=== PATIENT | male | born 1965 | race Caucasian/White ===

== ENCOUNTER 2024-04-13 11:21 | Outpatient (CLI) | payer OTHER, SELFPAY ==
--- NOTE | 2024-04-13 11:30 | XR_ITS ---
WS: [id number] ANKLE RIGHT TECHNIQUE: 2 views of the right ankle CLINICAL INFORMATION: RIGHT ANKLE PAIN COMPARISON: None. FINDINGS: Osteopenia. Postoperative changes plate and screw fixation mid to distal fibula. No evidence of hardw are loosening. Advanced degenerative narrowing at the tibiotalar joint with flattening of the talus. Flattening and sclerosis involving the talar dome likely due to avascular necrosis. XR/XR ankle RT 2V [id number] IMPRESSION: 1. Osteopenia. 2. Plate and screw fixation mid to distal fibula with chronic fracture deformi ty with posterior bowing. Associated hyperostosis. 3. Advanced degenerative narrowing of the tibiotalar joint with flattening and sclerosis of the talus likely due to avascular necrosis. This could be further evaluated with CT if indicated.
== END 2024-04-13 11:22 | disposition home or self-care (01) ==
LOC: RAD 11:27
DX: Z02.71 Encounter for disability determination (principal); M85.871 Other specified disorders of bone density and structure, right ankle and foot; Z98.890 Other specified postprocedural states; R93.6 Abnormal findings on diagnostic imaging of limbs
CPT/HCPCS: 73600

== ENCOUNTER → 2024-10-01 15:01 | Outpatient (BNVA) | payer OTHER, SELFPAY | PROVIDERS: Visit Provider Family Medicine | DX: M25.50 Pain in unspecified joint (principal); I10 Essential (primary) hypertension; Z12.5 Encounter for screening for malignant neoplasm of prostate | CPT/HCPCS: 80053; 80061; 85025; 85651; 86038; 86140; 86431; G0103 ==

== ENCOUNTER → 2024-12-24 11:13 | Outpatient (BNVA) | payer MEDICAID, SELFPAY | PROVIDERS: PCP Family Medicine; Visit Provider Family Medicine | DX: R31.9 Hematuria, unspecified (principal) | CPT/HCPCS: 80053; 81000 ==

== ENCOUNTER → 2025-03-25 13:00 | Outpatient (BNVA) | payer MEDICAID, SELFPAY | PROVIDERS: PCP Family Medicine; Visit Provider Family Medicine | DX: E55.9 Vitamin D deficiency, unspecified (principal); E78.2 Mixed hyperlipidemia; I10 Essential (primary) hypertension | CPT/HCPCS: 80053; 80061; 82306 ==

== ENCOUNTER 2025-04-08 11:32 | Outpatient (CLI) | payer MEDICAID, SELFPAY ==
--- NOTE | 2025-04-08 | ECG_ITS ---
[facility] Test Date: 2025-04-08 Pat Name: Francisco Kolb Department: Room: Gender: Male [employer]: : 1965 Requested By: Alfa Tobar Order Number: [id number] Jillian MD: ELPIDIO NEFF Interpretive Statements Lung unchanged pre/post procedure; Intraprocedure shortess of breath; Symptoms resoled by discharge EXERCISE DATA: The patient was exercised by Francisco protocol. Baseline heart rate was 71 beats per minute. Baseline blood pressure was 125/92 millimeters of mercury. Target heart rate was 159 beats per minute. Maximum heart rate achieved was 166, which was 104 % of the target heart rate. Maximum blood pressure was 216/92 millimeters of mercury. Total exercise time was 9 minutes 25 seconds. Maximum METs achieved was 13.5, maximum VO2 was 47.3. The reason for ending the test was maximum effort achieved. The patient complained of shortness of breath during the stress test, which then resolved at the end of the test. ELECTROCARDIOGRAM: BASELINE: Showed sinus rhythm, normal axis, no significant ST-T changes at the baseline noted. EXERCISE: At the peak exercise level, no significant ST-T changes suggestive of ischemia noted. RECOVERY: During the recovery period, heart rate dropped appropriately. No significant ST-T changes in the recovery suggestive of ischemia noted. CONCLUSION: 1. Exercise capacity good 2. Heart rate response was appropriate. 3. Blood pressure response was hypertensive. 4. Symptoms not suggestive of ischemia. 5. Electrocardiogram portion of the stress test was not suggestive of ischemia. Electronically Signed On 04-11-2025 15:57:05 PSYCHOLOG[employer] TE[employer] by ELPIDIO NEFF [email or web address]
[2025-04-08 12:00] VITALS: BMI 23.0
[2025-04-08 12:35] VITALS: BP 156/83; PULSE 101
== END 2025-04-08 11:33 | disposition home or self-care (01) ==
PROVIDERS: PCP Family Medicine; Visit Provider Family Medicine
DX: R07.9 Chest pain, unspecified (principal); I10 Essential (primary) hypertension; E78.2 Mixed hyperlipidemia; R93.1 Abnormal findings on diagnostic imaging of heart and coronary circulation
CPT/HCPCS: 93017